=== PATIENT | female | born 1940 | race Caucasian/White ===

== ENCOUNTER → 2017-03-18 | Outpatient (CLI) | payer OTHER, BC ==
[~2017-03-18] MED LIST: ALEVE220 M2 PO; ASPIR-LOW81 MG PO; CALCIUM 500 MG1 EACH PO; CLEOCIN300 MG PO; CRESTOR20 MG PO; FISH OIL 1,0001 EAC7 PO; KEFLEX500 MG PO; LEXAPRO10 MG PO; METAMUCIL FIBE3.4 GM PO; MULTIVITAMIN1 EAC2 PO; NORVASC2.5 MG PO; RESTASIS 01 DROP/0.4 BOTH EYES; SPIRONOLACT/HC1 EACH PO; SYNTHROID50 MCG PO
== END | disposition home or self-care (01) ==
DX: M17.12 Unilateral primary osteoarthritis, left knee (principal); R26.2 Difficulty in walking, not elsewhere classified; M25.562 Pain in left knee; M25.662 Stiffness of left knee, not elsewhere classified; M62.81 Muscle weakness (generalized); Z74.1 Need for assistance with personal care
CPT/HCPCS: 97150 GO; 97161 GP; 97165 GO; 97530 GP; G8978 GP; G8979 GP; G8980 GP; G8987 GO; G8988 GO; G8989 GO

== ENCOUNTER 2017-03-31 21:41 | Inpatient (IN) | payer OTHER, BC ==
[~2017-03-31] VITALS: Ht 157.5 cm; Wt 94.2 kg
[~2017-03-31 21:41] MED LIST changes: +ATIVAN1 MG PO; +CALTRATE 600 +1 EAC1 PO; -FISH OIL 1,0001 EAC7 PO; +FISH OIL 1,2001 EAC4 PO; +IRON325 M1 PO; -NORVASC2.5 MG PO; +NORVASC5 MG PO; +PLAQUENIL200 MG PO; +PROZAC20 MG PO; -RESTASIS 01 DROP/0.4 BOTH EYES; +RESTASIS MULTI5.5 ML BOTH EYES; +SYNTHROID150 MCG PO; -SYNTHROID50 MCG PO; +VITAMIN D32000 UNI1 PO
[2017-04-01 08:10] VITALS: BP 142/67
[2017-04-01 12:18] LABS: HEMATOCRIT 40.1 % (36.0-46.0); HEMOGLOBIN 13.7 G/DL (11.9-15.5); MCH 31.1 PG (29.0-34.0); MCHC 34.2 G/DL (30.0-36.0); MCV 90.9 FL (83-99); PLATELET COUNT 173 K/uL (156-360); RBC DIS.WIDTH-CV 12.1 % (11.8-14.6); RBC DIS.WIDTH-SD 40.4 % (39-53); RED BLOOD COUNT 4.41 M/uL (3.80-5.20); WHITE BLOOD COUNT 6.5 K/uL (4.1-10.2)
[2017-04-01 17:18] VITALS: BP 146/67
[2017-04-01 23:31] VITALS: BP 161/72
[2017-04-02 05:22] LABS: HEMATOCRIT 37.2 % (36.0-46.0); HEMOGLOBIN 13.1 G/DL (11.9-15.5); MCV 89.4 FL (83-99)
[2017-04-02 05:47] LABS: CHLORIDE 102 MEQ/L (99-109); CREATININE 0.5 MG/DL (0.6-1.3); GFR ESTIMATE (CALCULATED) > 59 mL/min/; GLUCOSE 134 mg/dL (70-99); POTASSIUM 3.6 MEQ/L (3.7-5.4); SODIUM 137 MEQ/L (136-147); UREA NITROGEN (BUN) 10 mg/dL (9-23)
[2017-04-02 07:55] VITALS: BP 158/66
[2017-04-02 17:08] VITALS: BP 176/75
[2017-04-02 23:42] VITALS: BP 148/67
[2017-04-03 07:03] LABS: HEMATOCRIT 36.8 % (36.0-46.0); MCV 90.2 FL (83-99)
[2017-04-03 07:30] LABS: CHLORIDE 102 MEQ/L (99-109); CREATININE 0.5 MG/DL (0.6-1.3); GFR ESTIMATE (CALCULATED) > 59 mL/min/; GLUCOSE 106 mg/dL (70-99); POTASSIUM 4.3 MEQ/L (3.7-5.4); SODIUM 138 MEQ/L (136-147); UREA NITROGEN (BUN) 10 mg/dL (9-23)
[2017-04-03 08:00] VITALS: BP 148/67
[2017-04-03] MEDS ORDERED: HYDROCODON-ACE1 EAC7 PO (09:27)
[2017-04-03] MEDS ORDERED: COUMADIN5 MG PO (09:27)
[2017-04-03] MEDS ORDERED: LOVENOX40 MG/0.4 SC (09:27)
[2017-04-03] MEDS ORDERED: DOCUSATE SODIU100 MG PO (09:27)
[2017-04-03] MEDS ORDERED: CELECOXIB200 MG PO (09:27)
[2017-04-03 11:10] LABS: INTER. NORMALIZED RATIO 1.3
== END 2017-04-03 15:10 | disposition home or self-care (01) | DRG 470 ==
LOC: ENRESERV 21:41 → 2SOUTH 04-01 06:40 → ENRESERV 04-01 14:24 → 3EAST 04-01 16:15
PROVIDERS: Orthopaedic Surgery; Physician Assistant
PROC: 0SRD0J9 Replacement of Left Knee Joint with Synthetic Substitute, Cemented, Open Approach (ICD-10-PCS; principal; 2017-04-01)
DX: M17.12 Unilateral primary osteoarthritis, left knee (principal); I10 Essential (primary) hypertension; M06.9 Rheumatoid arthritis, unspecified; E78.00 Pure hypercholesterolemia, unspecified; F41.9 Anxiety disorder, unspecified; F32.9 Major depressive disorder, single episode, unspecified; G47.30 Sleep apnea, unspecified; E07.9 Disorder of thyroid, unspecified; H26.9 Unspecified cataract; K58.9 Irritable bowel syndrome, unspecified; M81.0 Age-related osteoporosis without current pathological fracture; Z90.49 Acquired absence of other specified parts of digestive tract; Z87.898 Personal history of other specified conditions; Z91.040 Latex allergy status; Z85.828 Personal history of other malignant neoplasm of skin; Z96.651 Presence of right artificial knee joint
CPT/HCPCS: 73560; 80048; 85014; 85018; 85027; 85610; C1713; J0131; J0690; J1100; J1170; J1650; J1885; J2250; J2405; J2795; J3010; J7030; J7050